=== PATIENT | female | born 1995 | race American Indian/Alaskan Native ===

== ENCOUNTER 2016-11-18 20:41 | Emergency (ER) | payer MEDICAID ==
[2016-11-18 21:21] VITALS: BP 128/88
[2016-11-18 22:42] LABS: Bacteria,Urine 1+ /HPF (Negative); Bilirubin,Urine NEG (Negative); Blood,Urine MOD (Negative); Ketones,Urine TR mg/dL (Negative); Leukocyte Esterase,Urine NEG (Negative); Mucus,Urine FEW /HPF; Nitrite,Urine NEG (Negative); RBC,Urine < 1.0 /HPF (0.0-6.0)
== END 2016-11-19 02:40 | disposition left against medical advice (07) ==
LOC: ED 20:41
DX: R10.9 Unspecified abdominal pain (principal); Z53.21 Procedure and treatment not carried out due to patient leaving prior to being seen by health care provider
CPT/HCPCS: 81001

== ENCOUNTER 2017-11-15 09:47 | Emergency (ER) | payer BC, MEDICAID ==
[2017-11-15 11:30] LABS: Bacteria,Urine 1+ /HPF (Negative); Bilirubin,Urine NEG (Negative); Blood,Urine NEG (Negative); Color,Urine Yellow (Yellow); Mucus,Urine 2+ /HPF; Protein,Urine <15 mg/dL mg/dL (Negative)
[2017-11-15 11:53] LABS: HCG Qualitative,Urine Negative (Negative)
--- NOTE | 2017-11-15 12:56 | Emergency Department Report ---
HPI - General Chief Complaint: Abdominal Pain Time Seen by Provider: 11/15/17 12:44 - HPI HPI: 22 year-old female presents to the emergency department with complaint of a few days of vaginal discharge. She says it is white, slightly malodorous. She has a history of BV that was diagnosed back in January and she says that she never went and got the medications filled. She does have a more remote history of gonorrhea and/or Chlamydia but says that she does not think that she would have contracted them again she has not been sexually active lately. She has a mild amount of pelvic cramping. She denies any vaginal bleeding, dysuria, fever, nausea or vomiting. Last menstrual period was the middle of September. She took a home test that was negative. No recent travel or sick contacts at home. She does not have a primary care physician or REGISTRATION REPRESENTATIVE. ED Past Medical Hx - Past Medical History Previous Medical History?: No Hx Hypertension: No Hx Diabetes: No Hx Deep Vein Thrombosis: No Hx Renal Disease: No Hx Sickle Cell Disease: No Hx Seizures: No Hx Asthma: No Hx HIV: No - Surgical History Past Surgical History?: No - Social History Smoking Status: Never Smoker Substance Use Type: None, Alcohol - Medications Home Medications: Home Medications Medication Instructions Recorded Confirmed Last Taken Type Triamcinolone 0.1% [Kenalog 0.1% 1 applic TP TID #1 tube 03/17/15 04/15/15 2 Days Ago Rx CREAM] ~04/13/15 Docusate Sodium [Colace CAP] 100 mg PO BID #60 capsule 04/14/15 Unknown Rx HYDROcodone/APAP 5-325 [[place] 1 each PO Q6H PRN #20 tablet 04/14/15 Unknown Rx 5-325 mg TAB] Ibuprofen [Motrin 600 MG tab] 600 mg PO Q6H PRN #100 tablet 04/14/15 Unknown Rx metroNIDAZOLE [Flagyl] 500 mg PO Q8HR #21 tablet 11/15/17 Unknown Rx ED Review of Systems ROS: Stated complaint: VAGINAL DISCHARGE Other details as noted in HPI Comment: All other systems reviewed and negative Constitutional: denies: chills, fever Eyes: denies: eye pain, eye discharge, vision change ENT: denies: ear pain, throat pain Respiratory: denies: cough, shortness of breath, wheezing Cardiovascular: denies: chest pain, palpitations Gastrointestinal: denies: nausea, vomiting Genitourinary: discharge. denies: dysuria Musculoskeletal: denies: back pain, joint swelling, arthralgia Skin: denies: rash, lesions Neurological: denies: headache, weakness, paresthesias Physical Exam - Physical Exam Vital Signs: Vital Signs 11/15/17 10:46 Temperature 98.0 F Pulse Rate 67 Respiratory 18 Rate Blood Pressure 112/64 O2 Sat by Pulse 100 Oximetry Physical Exam: GENERAL: The patient is well-developed well-nourished. HENT: Normocephalic. Atraumatic. Patient has moist mucous membranes. EYES: Extraocular motions are intact. NECK: Supple. No meningitic signs are noted. There is no adenopathy noted. CHEST/LUNGS: Clear to auscultation. There is no respiratory distress noted. HEART/CARDIOVASCULAR: Regular. There is no tachycardia. There is no murmur. ABDOMEN: Abdomen is soft, nontender. Patient has normal bowel sounds. There is no abdominal distention. SKIN: Skin is warm and dry. NEURO: The patient is awake, alert, and oriented. The patient is cooperative. The patient has no focal neurologic deficits. The patient has normal speech and gait. MUSCULOSKELETAL: There is no tenderness or deformity. There is no limitation range of motion. There is no evidence of acute injury. : There are no labial or vaginal lesions seen. There is some malodorous thin white discharge seen in the vaginal vault. ED Course Vital Signs 11/15/17 10:46 Temperature 98.0 F Pulse Rate 67 Respiratory 18 Rate Blood Pressure 112/64 O2 Sat by Pulse 100 Oximetry ED Medical Decision Making - Medical Decision Making Patient comes in with complaint of vaginal discharge and a history of untreated BV. She does not have any significant pelvic pain. I did a pelvic exam while chaperoned by the [employer] and the samples were sent for wet prep and gonorrhea/chlamydia. The wet prep came back positive for BV. Urinalysis was unremarkable and patient is not . She will be started on Flagyl and she has been given referrals for primary care and REGISTRATION REPRESENTATIVE. She will return to the ER with any worsening or symptoms or any acute distress. - Differential Diagnosis BV, , UTI, STD Critical Care Time: No Critical care attestation.: If time is entered above; I have spent that time in minutes in the direct care of this critically ill patient, excluding procedure time. ED Disposition Clinical Impression: Bacterial vaginosis Disposition: DC- TO HOME OR SELFCARE Is pt being admited?: No Condition: Stable Instructions: Bacterial Vaginosis (ED) Additional Instructions: Please follow up with a primary care physician and REGISTRATION REPRESENTATIVE. Return to the emergency Department with any worsening of your symptoms or any acute distress. I have started you on a antibiotic called Flagyl/metronidazole to treat your bacterial vaginosis. This antibiotic has a significant reaction to alcohol and if you consume alcohol of any quantity it may cause you to have significant nausea, vomiting and abdominal pain. Prescriptions: metroNIDAZOLE [Flagyl] 500 mg PO Q8HR #21 tablet Referrals: PRIMARY CAREMD [Primary Care Provider] - 3-5 Days YARA VINES MD [Staff Physician] - 3-[address] [facility] [Outside] - 3-5 Days [facility], [facility] [Provider Group] - 3-5 Days [facility] [Provider Group] - 3-5 Days Time of Disposition: 14:24
[2017-11-15 15:41] VITALS: BP 114/78
== END 2017-11-15 14:40 | disposition home or self-care (01) ==
LOC: ED 09:47
DX: N76.0 Acute vaginitis (principal)
CPT/HCPCS: 81001; 81025; 87210; 87591